=== PATIENT | female | born 1985 | race Caucasian/White ===

== ENCOUNTER 2020-11-18 03:42 | Observation (INO) | payer BC ==
[~2020-11-18] VITALS: Ht 162.6 cm; Wt 59.9 kg
[~2020-11-18 03:42] MED LIST: COLACE 100MG C100 MG PO; FLINTSTONES1 EAC1 PO; IBUPROFEN600 MG PO; LORTAB 5-325 M1 EACH PO
[2020-11-18 04:43] LABS: HEMOGLOBIN 15.1 gm/dl (12.3-15.3); RED BLOOD COUNT 5.51 M/UL (4.00-5.10); WHITE BLOOD COUNT 13.5 K/UL (4.5-11.0)
[2020-11-18 04:51] LABS: BUN/CREATININE RATIO 17 (0-10)
[2020-11-19 03:43] LABS: HEMOGLOBIN 13.4 gm/dl (12.3-15.3); RED BLOOD COUNT 4.92 M/UL (4.00-5.10); WHITE BLOOD COUNT 9.9 K/UL (4.5-11.0)
--- NOTE | 2020-11-19 18:14 | NUR ---
GAVIN CONTACTED REGARDING MOTHER AND HUSBANDS CONCERN ABOUT LAURA HAVING ABDOMINAL PAIN. MESSAGE LEFT ON DR TOBIN ANSWERING MACHINE
== END 2020-11-20 18:08 | disposition home or self-care (01) ==
LOC: ER1 03:42 → CDU 07:26 → MED SURG 4 17:32
PROVIDERS: Emergency Medicine; ADMIT Surgery
DX: K56.609 Unspecified intestinal obstruction, unspecified as to partial versus complete obstruction (principal); Z20.822 Contact with and (suspected) exposure to COVID-19; Z90.49 Acquired absence of other specified parts of digestive tract
CPT/HCPCS: 36415; 74018; 76705; 80053; 81001; 83690; 84703; 85025; 85027; 96374; 96375; 96376; 99285; G0378; J1885; J2250; J2270; J2405; J3480; J7030; Q9963; Q9967; U0002